=== PATIENT | female | born 1980 | race Native Hawaiian/Other Pacific Islander ===

== ENCOUNTER 2017-11-05 09:21 | Day surgery (SDC) | payer OTHER ==
[2017-11-04 14:10] VITALS: BMI 19.2
[2017-11-05] MEDS ORDERED: Midazolam 2 MG/2 ML VIAL ONE (10:03)
[2017-11-05] MEDS ORDERED: Propofol 10 mg/ml Inj (20 ML) ONE (10:03)
[2017-11-05 10:06] VITALS: TEMP 98.4
[2017-11-05] MEDS ORDERED: Lactated Ringer's 1,000 ML IV ONE (10:15)
--- NOTE | 2017-11-05 10:18 | CP.SDSHP ---
Same Day Surgery H & P - History Proposed Procedure: endoscopy Pre-Op Diagnosis: abdom pain - Allergies Allergies: Allergies No Known Allergies Allergy (Verified 11/04/17 14:09) - Physical Exam Vital Signs: Vital Signs 11/05/17 09:43 Temperature 98.4 F Pulse Rate 79 Respiratory 19 Rate Blood Pressure 119/66 O2 Sat by Pulse 97 Oximetry Mental Status: Alert & Oriented x3 Neuro: WNL Heart: WNL Lungs: WNL GI: WNL - {Optional Preform as Required} Abdomen: WNL - Impression Pt. Evaluated Today:Candidate for Anesthesia & Procedure: Yes - Date & Time Date: 11/05/17 Time: 10:05 Short Stay Discharge - Short Stay Discharge Admitting Diagnosis/Reason for Visit: GENERALIZED ABDOMINAL PAIN Disposition: HOME/ ROUTINE
[2017-11-05 11:16] VITALS: RESP 15
[2017-11-05 14:10] VITALS: BP 123/80; PULSE 80; O2SAT 98
== END 2017-11-05 12:20 | disposition home or self-care (01) ==
LOC: C.ENDO 09:21
PROVIDERS: ATTEND Internal Medicine Gastroenterology
DX: K29.70 Gastritis, unspecified, without bleeding (principal); K31.9 Disease of stomach and duodenum, unspecified
CPT/HCPCS: 43239; 84703; 88305; J2250; J2704; J7120